=== PATIENT | female | born 1955 | race Hispanic/Latino ===

== ENCOUNTER 2016-07-21 14:38 | Emergency (ER) | payer OTHER ==
[~2016-07-21] VITALS: Ht 165.1 cm; Wt 72.7 kg
[2016-07-21 14:43] VITALS: BP 160/85; PULSE 79; RESP 15; O2SAT 99
[2016-07-21 15:09] LABS: BASOPHILS % (AUTO) 0.6 % (0-3); EOSINOPHILS % (AUTO) 3.4 % (0-5); MONOCYTES % (AUTO) 9.5 % (4-12); Mean Corpuscular Volume 90.9 fL (81-100); Platelet Count 308 bil/L (150-400)
--- NOTE | 2016-07-21 15:11 | ED.REPORT ---
HPI-Syncope Date of Service Jul 21, 2016 ED Provider: Zay Cruz DO Pt is a Maldivian speaking 60 year old female female with a history of CVA 12 months ago, who presents to the ED via EMS immediately following a syncopal episode. Pt reports that when she woke up this morning, she felt dizzy but did not lose consciousness at this time. She reports that later in the day she was shopping with her family, when her dizziness intensified, and she lost consciousness. She reports that the onset of these symptoms feels different from the CVA she had before. She denies any trauma to her head upon the fall, as her son caught her. Pt reports that she has balance issues, leg weakness and numbness that are residual from her stroke, and has to walk with a cane. Pt denies any recent illness, fevers, neurological deficits or any other symptoms. Nursing Notes Stated Complaint: SYNCOPE Chief Complaint: General Complaint Nursing Notes Reviewed: Yes Allergies: Coded Allergies: No Known Allergies (Unverified , 07/21/16) General Time Seen by Provider: 15:12 Chief Complaint Collapsed suddenly Syncope Description: First episode Hx Obtained From: Patient, Spouse Arrived By: Ambulance Onset Occurred: Just prior to arrival Symptom Duration: 1 - 15 minutes Severity: Current: No pain currently Severity: Maximum: No pain Similar Sx Previous: Yes Past Medical History Past Medical History CVA 12 months ago Ambulatory Status Cane Review of Systems Constitutional: Reports: Weakness - generalized, Denies: Chills, Fever, Malaise Respiratory: Denies: Non-productive cough, Wheezing Cardiovascular: Reports: Syncope, Denies: Chest pain GI: Denies: Abdominal pain, Constipation, Diarrhea, Nausea, Vomiting Musculoskeletal: Denies: Back pain, Extremity pain, Neck pain Skin: Denies Diaphoresis Neurologic: Reports: Change LOC, Syncope, Denies: Dizziness, Headache, Weakness Complete sys rev & neg: except as marked. Physical Exam Initial Vital Signs Vital Signs (First) Date Time Temp Pulse Resp B/P Pulse Ox O2 Delivery O2 Flow Rate FiO2 07/21/16 14:43 36.5 79 15 160/85 99 Room Air Initial VS: Reviewed Head / Eyes: Atraumatic, Normocephalic, PERRL ENT: Mucous membranes moist, Conjunctiva normal, No scleral icterus Neck: Supple, Non-tender, Full range of motion Skin: Warm, Dry, No cyanosis Psychiatric: Mood/affect normal, Behavior normal, Normal thought content General/Constitutional: Awake, Alert, No acute distress, Well appearing, Well developed, Well nourished, Cooperative Respiratory / Chest: Atraumatic, Breath sounds NL, Breath sounds = bilat, No respiratory distress Cardiovascular: Heart rate NL, Regular rhythm, Heart sounds NL, No gallop, No murmurs, No rubs Lower Extremity / Pelvis / MS: Atraumatic, Inspection NL, No swelling, Non- tender Neurologic: Oriented X3, Speech NL, No motor deficits, No sensory deficits, CN II - XII intact Interpretation & Diagnostics Lab Results Interpretation Result Diagram: 07/21/16 1455 07/21/16 1455 Test 07/21/16 14:55 07/21/16 15:21 White Blood Count 7.3th/mm3 (3.8-10.1) Red Blood Count 4.52mil/mm3 (3.90-5.20) Hemoglobin 14.0g/dL (12.0-15.6) Hematocrit 41.1% (35.0-46.0) Mean Corpuscular Volume 90.9fL (81-100) Mean Corpuscular Hemoglobin 31.0pg (27.0-35.0) Mean Corpuscular Hemoglobin Concent 34.1% (32.0-37.0) Red Cell Distribution Width 12.8% (12.3-15.4) Platelet Count 308bil/L (150-400) Neutrophils (%) (Auto) 52.0% (40-74) Lymphocytes (%) (Auto) 34.4% (14-46) Monocytes (%) (Auto) 9.5% (4-12) Eosinophils (%) (Auto) 3.4% (0-5) Basophils (%) (Auto) 0.6% (0-3) Prothrombin Time 10.4sec (8.1-12.5) Prothromb Time International Ratio 0.97ratio Sodium Level 142mEq/L (134-144) Potassium Level 4.0mEq/L (3.5-5.2) Chloride Level 104mEq/L (97-108) Carbon Dioxide Level 25mmol/L (18-29) Blood Urea Nitrogen 16mg/dL (8-27) Creatinine 0.45mg/dL (0.57-1.00) Estimat Glomerular Filtration Rate 203mL/min (>59) Glucose Level 89mg/dL (60-99) Calcium Level 9.0mg/dL (8.5-10.1) Magnesium Level 1.8mg/dL (1.6-2.6) Total Bilirubin 0.2mg/dL (0.0-1.2) Aspartate Amino Transf (AST/SGOT) 20U/L (0-50) Alanine Aminotransferase (ALT/SGPT) 16U/L (0-32) Alkaline Phosphatase 98U/L (25-165) Troponin T < 0.010ug/L (0.0-0.011) Total Protein 7.7g/dL (6.4-8.4) Albumin 4.1g/dL (3.4-5.0) Hold Urine Received (Received) ECG Interpretation ECG Interpretation: SR - 65 Low Voltage, precordial leads Abnormal R wave progression, early transition Time: 15:19 Interpreted by: ED physician X-Ray Chest Interpretation Chest Xray Interpretation: IMPRESSION: No acute cardiopulmonary disease. Dictated by: David Cobian M.D. on 07/21/2016 at 15:3 Re-Eval/Medical Decision Med Decision/Clinical Course Patient had a syncopal episode it sounded orthostatic in nature, overall workup is unremarkable patient is now ambulatory at normal baseline. Patient is a somewhat difficult historian though it sounds like she has balance difficulty over the last several years related to a prior stroke and that is not the acute underlying issue today. She will be discharged to follow-up with her primary care or return to ER as needed if worse. Source of Hx: Old records Re-Evaluation/Progress : Time of Eval: 16:29 Re-Evaluation/Progress Note: Pt is rechecked and informed of her imaging results and the plan to discharge her at this time. She understands and agrees, all questions are addressed. Counseled Regarding: Diagnosis, Lab results, Need for follow-up, When/why to return to ED Discharge & Departure Impression: Primary Impression: Syncope Disposition: Home Discharge Condition All VS Reviewed: Yes Condition: Stable Patient Instructions: Syncope (ED) Additional Instructions: Workup seems to be normal. I think you are having a heart attack or a stroke. Be sure to stay hydrated. Your labs are. Follow-up with your regular doctor tomorrow for further evaluation and care or return to the ER as needed if worse. Referrals: Sia Tomlin DO (PCP) Ozzie Larsen MD (Family) Aura Attestation Portions of this note were transcribed by Denise Hernández. I, Dr. Cruz personally performed the history, physical exam and medical decision-making; I reviewed and confirmed the accuracy of the information in the transcribed note. Signed by: Aura Ann, 07/21/2016 16:10 copies to: Sia Tomlin DO; Ozzie Larsen MD, Timothy S DO Jul 21, 2016 15:11 CODIE HERNÁNDEZ Jul 21, 2016 15:19
[2016-07-21 15:22] LABS: INR 0.97 ratio
[2016-07-21] MEDS ORDERED: 0.9% Sodium Chloride 1,000 ML IV ONE (15:25)
--- NOTE | 2016-07-21 15:40 | DRSVH ---
PROCEDURE: X-RAY CHEST ONE VIEW, PORTABLE ([id number]) INDICATIONS: 60 year-old female with syncope. TECHNIQUE: One view of the chest was acquired. COMPARISON: None. FINDINGS: Surgical changes and devices: None. Lungs and pleura: No pleural effusions or pneumothorax. Lungs are clear. Mediastinum: Mediastinal contours appear normal. Heart size is normal. Bones and chest wall: No suspicious bony lesions. Overlying soft tissues appear unremarkable. IMPRESSION: No acute cardiopulmonary disease. Dictated by: David Cobian M.D. on 07/21/2016 at 15:38 Approved by: David Cobian M.D. on 07/21/2016 at 15:38
[2016-07-21 15:42] LABS: Magnesium 1.8 mg/dL (1.6-2.6)
[2016-07-21 15:45] LABS: TROPONIN T < 0.010 ug/L (0.0-0.011)
[2016-07-21 16:03] VITALS: BP 135/57; PULSE 63; RESP 14; O2SAT 96
[2016-07-21 16:06] VITALS: BP 140/79; PULSE 68; RESP 14
[2016-07-21 16:57] VITALS: BP 140/79; PULSE 68; RESP 14; O2SAT 96
== END 2016-07-21 16:59 | disposition home or self-care (01) ==
LOC: SED 14:38 → EDBD 14:38 → EDSEX 14:38 → SED 16:59
DX: R55 Syncope and collapse (principal); Z86.73 Personal history of transient ischemic attack (TIA), and cerebral infarction without residual deficits; Z86.79 Personal history of other diseases of the circulatory system
CPT/HCPCS: 36415; 71010; 80053; 83735; 84484; 85025; 85610; 93005; 96360; 99285; J7030

== ENCOUNTER 2017-02-27 19:15 | Emergency (ER) | payer OTHER ==
[~2017-02-27] VITALS: Ht 149.9 cm; Wt 160.0 kg
[2017-02-27 19:21] VITALS: BP 145/81; PULSE 82; RESP 16; O2SAT 96
--- NOTE | 2017-02-27 20:20 | ED.REPORT ---
HPI-GI Bleed Date of Service Feb 27, 2017 ED Provider: Dr. James Pt is a 61 y/o Kinyarw[place] speaking female presenting to the ED with her son c/o bright red rectal bleeding onset today. The patient went to have a BM today and noticed the toilet water was red. She c/o associated mild SOB, mild lightheadedness, mild rectal pain. She has never had a colonoscopy and does not take any anticoagulants. She sometimes takes NSAIDs. She experiences mild rectal bleeding similar in character today but infrequently. Nursing Notes Stated Complaint: BLOOD IN STOOL Chief Complaint: Female Abdominal Pain Nursing Notes Reviewed: Yes Allergies: Coded Allergies: No Known Allergies (Unverified , 02/27/17) Scheduled Docusate Calcium (Stool Softener) 240 Mg Capsule 240 MG PO DAILY Hydrocortisone AC/Lidocaine (Lidocaine-Hc 3-0.5% Cream Kit) 7 Gm Cream.appl 7 GM RC TID General Time Seen by Provider: 20:24 Chief Complaint Chief Complaint: Other (BRBPR) Hx Obtained From: Patient Arrived By: Walk-in Onset Occurred: 5 - 8 hours ago Symptom Duration: Intermittent Progression Since Onset: Intermittent Quality: Painful (rectal) Severity: Current: Mild Severity: Maximum: Mild Similar Sx Previous: Yes Past Medical History Past Medical History CVA 12 months ago Chronic back pain Infrequent rectal bleeding Past Surgical History None reported Smoking History Never Smoker Social History Alcohol Use: Denies alcohol use Ambulatory Status Cane Review of Systems Respiratory: Reports: Shortness of breath GI: Reports: Hematochezia, Rectal pain Neurologic: Reports: Lightheaded Complete sys rev & neg: except as marked. Physical Exam Initial Vital Signs Vital Signs (First) Date Time Temp Pulse Resp B/P Pulse Ox O2 Delivery O2 Flow Rate FiO2 02/27/17 19:21 36.9 82 16 145/81 96 Room Air Initial VS: Reviewed, Vital signs normal Head / Eyes: Atraumatic, Normocephalic ENT: Mucous membranes moist, Conjunctiva normal, No scleral icterus Neck: Supple, Full range of motion Extremities: Vascular intact, Neuro intact, No swelling Skin: Warm, Dry, No cyanosis Neurologic: Alert, Oriented, Nonfocal Psychiatric: Mood/affect normal, Behavior normal, Normal thought content General/Constitutional: Awake, Alert, No acute distress, Well appearing, Cooperative, Not toxic appearing Respiratory / Chest: Breath sounds NL, Breath sounds = bilat, No respiratory distress, No rales, No rhonchi, No wheezing Cardiovascular: Heart rate NL, Regular rhythm, Heart sounds NL, No murmurs Abdomen: Atraumatic, Soft, Non-tender, No guarding, No rebound, BS normoactive , No distention, No palpable mass Rectum / Perineum: Atraumatic, Blood - occult heme -, No discharge Brown stool Gross bright red blood present Hemorrhoids present Interpretation & Diagnostics Lab Results Interpretation Result Diagram: 02/27/17 2154 02/27/17 2030 Test 02/27/17 20:30 02/27/17 21:54 White Blood Count 6.7th/mm3 (3.8-10.1) Red Blood Count 4.11mil/mm3 (3.90-5.20) Mean Corpuscular Volume 91.0fL (81-100) Mean Corpuscular Hemoglobin 31.4pg (27.0-35.0) Mean Corpuscular Hemoglobin Concent 34.5% (32.0-37.0) Red Cell Distribution Width 12.4% (12.3-15.4) Platelet Count 256bil/L (150-400) Neutrophils (%) (Auto) 52.3% (40-74) Lymphocytes (%) (Auto) 30.2% (14-46) Monocytes (%) (Auto) 12.7% (4-12) Eosinophils (%) (Auto) 4.3% (0-5) Basophils (%) (Auto) 0.4% (0-3) Sodium Level 141mEq/L (134-144) Potassium Level 3.9mEq/L (3.5-5.2) Chloride Level 104mEq/L (97-108) Carbon Dioxide Level 22mmol/L (18-29) Blood Urea Nitrogen 13mg/dL (8-27) Creatinine 0.43mg/dL (0.57-1.00) Estimat Glomerular Filtration Rate 213mL/min (>59) Glucose Level 114mg/dL (60-99) Calcium Level 8.4mg/dL (8.5-10.1) Magnesium Level 1.7mg/dL (1.6-2.6) Hold Anderson Top Tube Received (Received) Hemoglobin 12.7g/dL (12.0-15.6) Hematocrit 37.0% (35.0-46.0) Re-Eval/Medical Decision Med Decision/Clinical Course This patient presents with rectal pain and bleeding which she has had on occasion. Her exam reveals inflamed hemorrhoids, and is likely that one burst causing the bleeding. There was some gross blood per her stool was normal. She is stable vital signs and hemoglobin with a benign abdominal exam. Partial list of differential diagnoses considered were diverticulitis, AVM, hemorrhoid bleeding, an upper GI bleed. Source of Hx: Old records Counseled Regarding: Diagnosis, Lab results, Need for follow-up, When/why to return to ED Discharge & Departure Impression: Primary Impression: Hemorrhoids Hemorrhoid type: unspecified Qualified Code: K64.9 - Unspecified hemorrhoids Disposition: Home Discharge Condition All VS Reviewed: Yes Condition: Stable Patient Instructions: Hemorrhoids (ED) Additional Instructions: The cause of your rectal bleeding is likely to be hemorrhoids. Your exam and labs are reassuring. There is no sign of anemia. You can use hemorrhoid cream for some relief. Return to the emergency department if you experience increased bleeding, fever, abdominal pain, vomiting, or for other concerning symptoms. Follow-up with your primary care doctor in 1 week for a recheck. Referrals: Sia Tomlin DO (PCP) Scribe Attestation Portions of this note were transcribed by Jin Woodward. I, Dr. James personally performed the history, physical exam and medical decision-making; I reviewed and confirmed the accuracy of the information in the transcribed note. copies to: Sia Tomlin Jena M MD Feb 27, 2017 20:20 JIN WOODWARD Feb 27, 2017 20:31
[2017-02-27] MEDS ORDERED: 0.9% Sodium Chloride 500 ML IV ONE (20:35)
[2017-02-27 20:38] LABS: BASOPHILS % (AUTO) 0.4 % (0-3); EOSINOPHILS % (AUTO) 4.3 % (0-5); MONOCYTES % (AUTO) 12.7 % (4-12); Mean Corpuscular Hemoglobin 31.4 pg (27.0-35.0); NEUTROPHILS % (AUTO) 52.3 % (40-74); Platelet Count 256 bil/L (150-400)
[2017-02-27 20:56] LABS: Magnesium 1.7 mg/dL (1.6-2.6)
[2017-02-27 21:20] VITALS: BP 123/81; PULSE 78; RESP 21; O2SAT 98
[2017-02-27] MEDS ORDERED: DOCU240C41 PO (22:41)
[2017-02-27] MEDS ORDERED: HYDR1KIT RC (22:41)
[2017-02-27 22:59] VITALS: BP 126/82; PULSE 72; RESP 18; O2SAT 99
== END 2017-02-27 22:45 | disposition home or self-care (01) ==
LOC: SED 19:15
DX: K64.9 Unspecified hemorrhoids (principal); M54.9 Dorsalgia, unspecified; G89.29 Other chronic pain; Z86.73 Personal history of transient ischemic attack (TIA), and cerebral infarction without residual deficits
CPT/HCPCS: 36415; 80048; 83735; 85014; 85018; 85025; 96360; 99284; J7040